=== PATIENT | male | born 1950 | race Caucasian/White ===

== ENCOUNTER → 2024-04-08 09:02 | Outpatient (REF) | payer OTHER, SELFPAY | LOC: DHSLP 09:02 | PROVIDERS: ATTENDING PHYSICIAN Nurse Practitioner; FAMILY PHYSICIAN Internal Medicine | DX: G47.33 Obstructive sleep apnea (adult) (pediatric) (principal) | CPT/HCPCS: 95800 ==

== ENCOUNTER → 2024-06-09 14:21 | Outpatient (REF) | payer OTHER, SELFPAY | LOC: HWRAD 14:21 | PROVIDERS: ATTENDING PHYSICIAN Internal Medicine Critical Care Medicine; FAMILY PHYSICIAN Internal Medicine | DX: R06.09 Other forms of dyspnea (principal) | CPT/HCPCS: 71046 ==

== ENCOUNTER 2024-10-28 17:21 | Emergency (ER) | payer OTHER, SELFPAY ==
[2024-10-28 17:23] VITALS: BP 155/90
--- NOTE | 2024-10-28 19:22 | ED.GENMED ---
History of Present Illness
General
Chief Complaint: Back Pain
Source: patient
Exam Limitations: none
Time Seen by Provider: 10/28/24 19:02
History of Present Illness
History of Present Illness:
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 Symptoms have been ongoing for about 10 days. He denies any trauma or inciting incident. Pain
is located in the left lower back and radiates into the lateral left hip and into the anterior thigh and knee. Pain is typically precipitated by ambulation and weight bearing. The pain becomes severe at times. Pain will improve if he sits down,
leans forward, or if he flexes the left hip. He does report some paresthesias primarily near the left knee. He has tried Advil, ice, and heat without relief. He is otherwise asymptomatic and denies any fevers, urinary retention, urinary
incontinence, saddle anesthesia, weight loss, abdominal pain, calf pain, leg swelling.
Past History
Past History
ED Past Medical History: Other (PVCs)
ED Past Surgical History: Other (Hernia surgery, cataracts)
Phy Exam
General Physical Exam
General Presentation: well appearing and no apparent distress
General age: appears stated age
General Skin: warm and dry
General Habitus: normal
General Mental: alert
ENT Exam
ENT Exam: normocephalic
Pulmonary Exam
Pulmonary Exam: no respiratory distress
Gastrointestinal Exam
Gastrointestinal Exam: non tender, soft and non distended
Neurological Exam
Neurological Exam: alert
[place] Coma Scale
Eye Opening: Spontaneous
Verbal Response: Oriented
Motor Response: Obeys Commands
GCS Total Score: 15
Musculoskeletal Exam
Musculoskeletal Exam: other (No tenderness to palpation of lumbar region. No skin changes appreciated. Surgical incision to L hip c/d/i without signs of infection. No pitting edema, skin changes, or clinical signs of DVT noted to L leg. 2+ DP pulse.)
Skin Exam
Skin Exam: normal color and warm/dry
Psychiatric Exam
Psychiatric Exam: normal mood/affect
Course
Orders/Labs/Results
Orders:
Orders
10/28/24 17:28
Hip, Left 2-3 Views [CR Hip - LT w/wo Pel 2-3 Vw*] Urgent
Comment:
Reason For Exam: left lower back and hip pain.
Include a pelvis x-ray?: Yes
10/28/24 19:20
CT Lumbar Spine W/o Iv Contras Urgent
Comment:
Reason For Exam: back pain radiating down L leg
Oxycodone/Acetaminophen [Percocet 5/325] 1 tablet PO NOW STA
Vital Signs
Initial and Last Documented VS:
Initial Vital Signs
Temp Pulse Resp BP Pulse Ox
97.4 F 65 20 155/90 99
10/28/24 17:23 10/28/24 17:23 10/28/24 17:23 10/28/24 17:23 10/28/24 17:23
Last Documented Vital Signs
Temp Pulse Resp BP Pulse Ox
97.4 F 65 20 155/90 99
10/28/24 17:23 10/28/24 17:23 10/28/24 17:23 10/28/24 17:23 10/28/24 17:23
MDM/Problems Addressed
Differential Diagnosis Includes:
74yoM here with L lower back pain radiating to L hip/anterior thigh x 10 days. Denies trauma. Hx of recent L hip replacement 10 days ago. No red flags in history including no fevers, saddle anesthesia, incontinence. VSS. He is well appearing in no
distress. No tenderness to palpation of lumbar region. No pitting edema or clinical signs of DVT noted. LLE is neurovascularly intact. Differential diagnosis includes but is not limited to: Muscular strain, fracture, radiculopathy, sciatica
Initial ED plan: X-rays of left hip obtained in triage which appear normal per my interpretation. Will obtain lumbar CT. Percocet ordered for pain.
*Critical Care Note
Total Time (30-74mins, 75-104mins- exclusive of procedures): Not Applicable
Update Note
Update Note:
CT shows no evidence of compression fractures. There are diffuse changes of degenerative disc disease present. Pain significantly improved on reassessment. No indication for hospitalization. Will trial course of prednisone. Prescription for
oxycodone provided for breakthrough pain. Advised f/u with orthopedics and ED return precautions discussed. Patient and in agreement with plan and he was discharged in stable condition.
ED Attending Note
-
Portions of this chart may have been created with voice recognition software.� Occasional wrong word or��sound alike� substitutions may have occurred due to the inherent limitations of voice recognition software.
Discharge Plan
Departure
Patient Disposition: Home (Routine Discharge)
Date of Disposition: 10/28/24
Time of Disposition: 22:38
Patient with high blood pressure during this ER visit?: Yes
Discharge Problem:
Lumbar radiculopathy
Instructions: Radiculopathy (DC)
Prescriptions:
New
prednisone 50 mg tablet
50 mg PO DAILY Qty: 5 0RF
oxycodone 5 mg tablet
5 mg PO Q8H PRN (Reason: Pain) Qty: 9 0RF
No Action
prednisone 50 mg tablet
50 mg PO DAILY Qty: 5 0RF
Referrals:
Billy Pinedo MD [Active] -
Roma Bailey CRNP [Family Provider] -
Activity Restrictions/Additional Instructions:
Take prednisone as prescribed. You may take Tylenol 650mg every 6 hours as needed. Take oxycodone only as needed for severe breakthrough pain.
Please follow-up with orthopedics. Return to the ER with any new or worsening symptoms.
Interventions
Interventions:
*Risk Screen - Suicide Last Done: 10/28/24 17:23
*General Assessment Last Done: 10/28/24 22:54
*Neglect/Abuse Screening Last Done: 10/28/24 19:39
*ED- Fall Risk Assessment Last Done: 10/28/24 22:54
*ED COVID-19 Vaccine History Last Done: 10/28/24 19:39
*Nursing Disposition Last Done: 10/28/24 22:53
ED-Musculoskeletal Assessment Last Done: 10/28/24 20:46
Discharge Date and Time
Discharge Date/Time: 10/28/24 22:54
Print Language: POLISH
[2024-10-28] MEDS: PERCOCET 5/325 1 TABLET PO (19:38)
== END 2024-10-28 22:54 | disposition home or self-care (01) ==
LOC: EMR 17:21
PROVIDERS: EMERGENCY PHYSICIAN Emergency Medicine; FAMILY PHYSICIAN Nurse Practitioner
DX: M51.16 Intervertebral disc disorders with radiculopathy, lumbar region (principal); K21.9 Gastro-esophageal reflux disease without esophagitis; Z86.79 Personal history of other diseases of the circulatory system; Z96.642 Presence of left artificial hip joint
CPT/HCPCS: 99284; 72131; 73502